=== PATIENT | female | born 2000 | race Caucasian/White ===

== ENCOUNTER 2020-05-25 22:04 | Emergency (ER) | payer OTHER ==
[~2020-05-25] VITALS: Ht 157.5 cm; Wt 84.8 kg
[2020-05-25 22:42] LABS: INFLUENZA A ANTIGEN Negative (Negative); INFLUENZA B ANTIGEN Negative (Negative)
[2020-05-25 23:22] VITALS: BP 125/80
== END 2020-05-25 23:23 | disposition home or self-care (01) ==
LOC: M.ERS 22:04
PROVIDERS: Emergency Medicine
DX: U07.1 COVID-19 (principal)

== ENCOUNTER 2021-02-03 06:10 | Inpatient (IN) | payer OTHER, MEDICAID ==
[~2021-02-03] VITALS: Ht 157.5 cm; Wt 97.5 kg
[2021-02-03 06:26] VITALS: BP 117/80
[2021-02-03 08:00] LABS: ABSOLUTE BASOPHILS 0.1 thou/uL (0.0-0.2); ABSOLUTE LYMPHOCYTES 1.8 thou/uL (0.8-5.3); ABSOLUTE NEUTROPHILS 14.8 thou/uL (1.6-8.1); BASOPHILS 0.4 %; EOSINOPHILS 0.1 %; HEMOGLOBIN 13.9 gm/dL (12.0-15.0); LYMPHOCYTES 9.9 %; MCH 27.6 pg (26.0-34.0); MCHC 32.3 g/dL (28.0-37.0); MCV 85.6 fL (80.0-100.0); MONOCYTES 5.7 %; MPV 8.3 fl. (7.2-11.1); NUCLEATED RBCS 0 /100WBC; PLATELET COUNT* 228 thou/uL (150-400); POLYS 83.9 %; RBC 5.02 mil/uL (4.20-5.00); RDW-CV 13.6 % (10.5-14.5); WBC 17.7 thou/uL (4.0-11.0)
[2021-02-03 08:46] LABS: ALBUMIN 3.8 g/dL (3.4-5.0); CALCIUM 8.5 mg/dL (8.5-10.1); CREATININE 0.8 mg/dL (0.6-1.3); POTASSIUM 3.8 mmol/L (3.5-5.1); TOTAL BILIRUBIN 1.6 mg/dL (<0.1-1.0)
[2021-02-03 18:00] VITALS: BP 118/74
[2021-02-03 22:00] VITALS: BP 110/61
[2021-02-04] VITALS (7 sets, daily range): BP systolic 101–128; BP diastolic 54–79
[2021-02-04 03:24] LABS: ABSOLUTE EOSINOPHILS 0.1 thou/uL (0.0-0.7); ABSOLUTE LYMPHOCYTES 2.1 thou/uL (0.8-5.3); ABSOLUTE NEUTROPHILS 12.1 thou/uL (1.6-8.1); BASOPHILS 0.3 %; EOSINOPHILS 0.5 %; LYMPHOCYTES 13.9 %; MCH 27.6 pg (26.0-34.0); MCHC 32.3 g/dL (28.0-37.0); MCV 85.6 fL (80.0-100.0); MONOCYTES 6.5 %; MPV 8.6 fl. (7.2-11.1); NUCLEATED RBCS 0 /100WBC; PLATELET COUNT* 193 thou/uL (150-400); POLYS 78.8 %; RBC 4.32 mil/uL (4.20-5.00); RDW-CV 13.1 % (10.5-14.5); WBC 15.4 thou/uL (4.0-11.0)
[2021-02-04 03:50] LABS: HEMOGLOBIN 11.9 gm/dL (12.0-15.0)
[2021-02-04 04:06] LABS: CREATININE 0.8 mg/dL (0.6-1.3); POTASSIUM 3.5 mmol/L (3.5-5.1); TOTAL BILIRUBIN 1.9 mg/dL (<0.1-1.0); TOTAL PROTEIN 6.7 g/dL (6.4-8.2)
--- NOTE | 2021-02-04 09:15 | NUR ---
ER ADMIT TO 223 TELEPHONE REPORT GIVEN PRIOR TO ARRIVAL PATIENT TO VIA CART UP INDEPENDENT DENIES PAIN AT HIS TIME ORIENTED TO AND CALL LIGHT
[2021-02-05 00:30] VITALS: BP 110/60
[2021-02-05 04:17] VITALS: BP 109/66
[2021-02-05 04:25] LABS: ALBUMIN 2.8 g/dL (3.4-5.0); CREATININE 0.7 mg/dL (0.6-1.3); POTASSIUM 3.5 mmol/L (3.5-5.1); TOTAL BILIRUBIN 1.7 mg/dL (<0.1-1.0); TOTAL PROTEIN 6.8 g/dL (6.4-8.2)
[2021-02-05 04:36] LABS: ABSOLUTE EOSINOPHILS 0.1 thou/uL (0.0-0.7); ABSOLUTE LYMPHOCYTES 1.9 thou/uL (0.8-5.3); ABSOLUTE NEUTROPHILS 12.7 thou/uL (1.6-8.1); BASOPHILS 0.2 %; EOSINOPHILS 0.7 %; HEMATOCRIT 36.1 % (37.0-47.0); HEMOGLOBIN 11.6 gm/dL (12.0-15.0); LYMPHOCYTES 12.3 %; MCH 27.6 pg (26.0-34.0); MCHC 32.2 g/dL (28.0-37.0); MCV 85.9 fL (80.0-100.0); MONOCYTES 6.2 %; MPV 8.6 fl. (7.2-11.1); NUCLEATED RBCS 0 /100WBC; PLATELET COUNT* 205 thou/uL (150-400); POLYS 80.6 %; RBC 4.21 mil/uL (4.20-5.00); RDW-CV 12.9 % (10.5-14.5); WBC 15.8 thou/uL (4.0-11.0)
--- NOTE | 2021-02-05 04:59 | NUR ---
PT SLEPT WELL DID WELL WITH FENTANYL ONCE FOR PAIN, RECEIVED ALL ABX AND FLUIDS SCHEDULED. UP AD BRANDIE, ALERT AND ORIENTED, ROOM AIR. NPO SINCE MIDNIGHT. NO WORSENING OF PAIN OR ANY REPORTS OF N/V.
[2021-02-05 07:54] VITALS: BP 97/56
--- NOTE | 2021-02-05 09:36 | NUR ---
CM ASSESSMENT: PT A&O, INDEPENDENT WITH ADL'S, AND ACTIVE. PT RESIDES AT HOME WITH FAMILY. PT USES 0 DME. NO CM D/C PLANNING NEEDS ANTICIPATED. CM WILL REMAIN AVAILABLE TO ASSIST AND FOLLOW NEEDED.
--- NOTE | 2021-02-05 10:03 | NUR ---
ASSUMED CARE OF OF PT THIS AM AROUND 07- MX STATUS IN PLACE- UPON ASSESSMENT PT NOTED TO BE RESTING IN BED- PT A&O X4- CONT OF B/B- UP AD-BRANDIE IN ROOM, STEADY GAIT NOTED- LCTA, RESP EVEN AND HD-[id number], O2 SAT 98% ON RA- ABD SOFT/OBESE/TENDER, BS X4 QUADS- PT REPORTS TO HAVE HAD NORMAL BM THIS AM- IV NOTED TO RIGHT AC INTACT WITH IVF INFUSSING PRESCRIBED, IV ABT GIVEN PRESCRIBED THIS AM- NPO STATUS INDICATED- IV FENT THIS AM PER PT REQUEST AT 0928 R/T EPIGASTRIC PAIN- CALL LIGHT AND PERSONAL BELONGINGS WITH IN REACH- PT MAKES NEEDS KNOWN- ALL NEEDS MET AT THIS TIME
[2021-02-05 16:00] VITALS: BP 120/84
[2021-02-05 19:49] VITALS: BP 129/80
[2021-02-06] VITALS: BP 126/81
--- NOTE | 2021-02-06 03:32 | NUR ---
PT HAS 4 LAP SITES WITH DERMABOND FREE OF SIGNS OR SYMPTOMS OF INFECTIONS. RECEIVED ALL FLUIDS/ABX SCHEDULED. PAIN IS WELL MANAGED. SHE SLEPT WELL OVERNIGHT. TOLERATING FOOD/WATER WELL AND GETTING UP TO USE RESTROOM. SHE SLEPT ALL NIGHT.
[2021-02-06 04:24] LABS: ABSOLUTE MONOCYTES 0.5 thou/uL (0.0-1.2); ABSOLUTE NEUTROPHILS 13.5 thou/uL (1.6-8.1); BASOPHILS 0.1 %; HEMATOCRIT 36.6 % (37.0-47.0); HEMOGLOBIN 11.9 gm/dL (12.0-15.0); MCH 27.7 pg (26.0-34.0); MCHC 32.5 g/dL (28.0-37.0); MONOCYTES 3.3 %; MPV 8.4 fl. (7.2-11.1); NUCLEATED RBCS 0 /100WBC; PLATELET COUNT* 239 thou/uL (150-400); POLYS 89.6 %
[2021-02-06 04:43] LABS: ALBUMIN 2.6 g/dL (3.4-5.0); CALCIUM 8.4 mg/dL (8.5-10.1); CREATININE 0.6 mg/dL (0.6-1.3); TOTAL BILIRUBIN 0.7 mg/dL (<0.1-1.0); TOTAL PROTEIN 6.9 g/dL (6.4-8.2)
[2021-02-06 08:00] VITALS: BP 119/71
[2021-02-06] MEDS ORDERED: OXYCODONE HCL 55 MG PO (09:03)
[2021-02-06] MEDS ORDERED: COLACE 100 MG100 MG PO (09:03)
[2021-02-06] MEDS ORDERED: MIRALAX17 GM PO (09:03)
[2021-02-06 10:32] VITALS: BP 119/71
[2021-02-06 10:57] VITALS: BP 119/71
--- NOTE | 2021-02-06 11:40 | NUR ---
PT DISCHARGED HOME WITH ALL BELONGINGS ACCOMPANIED BY SIGNIFICANT OTHER. PT DENIES PAIN. INCISIONS CLEAN, DRY ANMD INTACT. PT UP TO SHOWER THIS AM BEFORE DISCHARGE TO HOME. PT HAS A GOOD UNDERSTANDING OF DISCHARGE INSTRUCTIONS. PT DISCHARGED HOME.
--- NOTE | 2021-02-07 17:09 | PATH ---
[address] [address] PATHOLOGY RPT PROCEDURE Name: TANMAY GOODWIN Room: [address] IN [facility].#: [id number] Admission: 02/03/21 Date of : 00 Discharge: 02/06/21 Report #: [id number] Path Case #: [id number] [facility] Accession Number: [id number] . 01 Material submitted: . gallbladder - GALLBLADDER AND CONTENTS . 01 Clinical history: . LAPAROSCOPIC CHOLECYSTECTOMY WITH GRAMS . 02 Diagnosis: Gallbladder, cholecystectomy: - Mild chronic cholecystitis. - Incidental lymph node. (IUV:pit; 02/07/2021) QTP 02/07/2021 1337 Local . 02 Electronically signed: . Shayy Powers MD, Pathologist NPI- [id number] . 01 Gross description: . Fixative: Formalin Labeled: Adam Keenan, gallbladder and contents Specimen received: Intact Dimensions: 8.4 x 3.5 x 3.3 cm Lymph node: Portillo, rubbery, 0.8 x 0.4 x 0.3 Serosa: Brown-green, hemorrhagic and dusky Calculi: None Mucosa: Brown and velvety without hernandez stippling Average wall thickness: 0.3 cm Abnormalities: None . A1: Gallbladder, represented to include the entirety of the candidate lymph node ([place]; 02/06/2021) DKA/DKA 02/06/2021 1325 Local . 02 Pathologist provided ICD-10: K81.1 . 02 CPT . 051173 Specimen Comment: A courtesy copy of this report has been sent to [phone] Specimen Comment: [id number] Specimen Comment: Report sent to / DR SOUSA Performed at: 01 [place] [address] PATHOLOGY RPT PROCEDURE Name: TANMAY GOODWIN Room: [address]#: [id number] Admission: 02/03/21 Date of : 00 Discharge: 02/06/21 Report #: [id number] Path Case #: [id number] [address] [facility] [address], [place], [place] [id number] MD Dangelo Toussaint MD Phone: [phone] Performed at: [address] [id number] MD Shayy Powers MD Phone: [phone]
--- NOTE | 2021-02-18 11:20 | OP ---
[address] [address] OPERATIVE REPORT Name: TANMAY GOODWIN Room: [address]#: [id number] Admission: 02/03/21 Attend Phys: Richard Dietrich MD Discharge: 02/06/21 Date of : 00 Report #: [id number] THIS REPORT FOR: cc: FAM - No family physician/PCP FAM - No family physician/PCP Gus Brown DO ~ DATE OF SURGERY: 02/05/2021 PREOPERATIVE DIAGNOSES: Symptomatic cholelithiasis and elevated liver enzymes. POSTOPERATIVE DIAGNOSES: Symptomatic cholelithiasis and elevated liver enzymes. PROCEDURE: Laparoscopic cholecystectomy with intraoperative cholangiogram. SURGEON: Gus Brown DO BOX SEALING MACHINE FEEDER: Rhys Renteria DO SECOND HEAD NECK SURGEON: Brian Araujo DO ANESTHESIA: General endotracheal and TAP blocks. ESTIMATED BLOOD LOSS: Less than 20 mL. SPECIMENS: None. DESCRIPTION OF PROCEDURE: After obtaining proper consents and discussing risks and complications with the patient, she was taken to the operating room, laid in the supine position and administered general endotracheal anesthetic. She then had TAP blocks performed by Anesthesia. She was then prepped and draped in the usual sterile fashion. A time-out was performed. We confirmed the appropriate patient and procedure. Preoperative antibiotics had been given. She had also been given 5 mg of indocyanine green dye in the preoperative holding area. Once she was prepped and draped, a small supraumbilical skin incision was made with #11 scalpel blade. This was carried down through the skin and subcutaneous tissues using electrocautery for hemostasis. Once the fascia was encountered, it was incised along the midline, grasped and elevated with Svetlana clamps and divided further. The peritoneum was then bluntly opened using a hemostat. A finger was placed inside the peritoneal cavity to assure there were no danni-incisional adhesions. Next, 2-0 Vicryl sutures were placed in a kggsky-rn-btsnt fashion to secure the Sudhakar trocar, which was then inserted and insufflation was begun. Once insufflation was complete, full visual inspection of the intraabdominal organs was performed. This revealed a thick walled appearing gallbladder. There was some pericholecystic fluid identified. There were no other gross abnormalities other than a mildly fatty appearing liver as well. We then placed three more 5 mm trocars, one in [place] [address] OPERATIVE REPORT Name: TANMAY GOODWIN Room: [address]#: [id number] Admission: 02/03/21 Attend Phys: Richard Dietrich MD Discharge: 02/06/21 Date of : 00 Report #: [id number] two in the right upper quadrant. We were then able to grasp and elevate the gallbladder. There were some adhesions of omentum to the gallbladder, which were taken down bluntly as well as using electrocautery to assure hemostasis. Once we identified Fidel's pouch, it was grasped and elevated. We then used a manual fluorescence imaging to identify where the cystic duct coursed through the hepatoduodenal ligament. I then bluntly dissected the hepatoduodenal ligament down until I was able to visualize the cystic duct as it coursed directly into the gallbladder. We also identified the cystic artery. At this time, both were completely divide completely dissected free. We then placed a clip at the gallbladder cystic duct junction. A cholangiogram catheter was then inserted through a 14-gauge Angiocath in the abdominal wall. We made a small chelsea in the cystic duct. Cholangiogram catheter was then inserted and cholangiography was performed. This revealed a normal intra and extrahepatic ducts. There was no evidence of any obstruction. We could visualize up in the right hepatic, left hepatic, common hepatic. The cystic duct was fairly long. The common bile duct was also long and narrow with good tapering at the distal end. Contrast flowed easily into the duodenum. We are also able to visualize a portion of the pancreatic duct as well. Once this was all done, we removed the cholangiogram catheter. I clipped the cystic duct three times proximally. I then dissected out the cystic artery, which was clipped proximally and distally and then divided between clips. The gallbladder was then removed from the liver bed using electrocautery and blunt dissection. Once the gallbladder was completely removed, it was placed into an Endopouch. We then assured hemostasis within the liver bed. We checked the cystic duct and cystic artery stumps for any leak or bleeding. We checked the liver bed as well. I also used immunofluorescence imaging again at the end of the procedure to assure there was no bile leak. We then stopped the insufflation. All trocars were removed. The gallbladder was removed through the umbilical incision. We did have to enlarge the fascial opening in order to remove it. We then closed the umbilical fascia using four interrupted 0 Vicryl sutures in a dkukie-hr-gcdig fashion as well as 3-0 Vicryl for the deeper subcutaneous tissue. The skin incisions were all closed using 4-0 Monocryl and Dermabond. The patient was awakened in the operating room and transported to recovery room in stable condition. <ELECTRONICALLY SIGNED> By: Gus Brown DO 02/18/21 1120 [id number] becky Leon
== END 2021-02-06 11:45 | disposition home or self-care (01) | DRG 417 ==
LOC: M.ERS 06:10 → M.TBA-ER 09:37 → M.2W 09:37
PROVIDERS: Family Medicine; Surgery; ADMIT Internal Medicine; ATTEND Internal Medicine
PROC: BF141ZZ Fluoroscopy of Gallbladder, Bile Ducts and Pancreatic Ducts using Low Osmolar Contrast (ICD-10-PCS; principal; 2021-02-05)
PROC: 0FT44ZZ Resection of Gallbladder, Percutaneous Endoscopic Approach (ICD-10-PCS; principal; 2021-02-05)
DX: K80.00 Calculus of gallbladder with acute cholecystitis without obstruction (principal); K85.90 Acute pancreatitis without necrosis or infection, unspecified; E66.9 Obesity, unspecified; E80.6 Other disorders of bilirubin metabolism; Z20.822 Contact with and (suspected) exposure to COVID-19; Z68.39 Body mass index [BMI] 39.0-39.9, adult